=== PATIENT | female | born 1990 | race Caucasian/White ===

== ENCOUNTER 2018-01-12 22:15 | Inpatient (IN) | payer BC ==
[2018-01-12] MEDS ORDERED: Tdap Vaccine 0.5 ml Vial (10-64 yrs) IM ONE ×2 (22:46→23:07)
[2018-01-12] MEDS ORDERED: ceFAZolin 2 GM in Sodium Chloride 0.9% 100 ML IVPB STA (22:47)
[2018-01-12] MEDS ORDERED: ceFAZolin IV 2 gm in Dextrose 2 GM/50 ML BAG IVPB STA (22:56)
[2018-01-12] MEDS ORDERED: Sodium Chloride 0.9% 1,000 ML IV STA (22:59)
[2018-01-12] MEDS: Lactated Ringer's 1,000 ML IV SCH (23:00)
[2018-01-12 23:17] LABS: BASO # 0.1 K/uL (0.0-0.2); BASO % 0.4 % (0.0-2.0); EOS # 0.1 K/uL (0.0-0.7); EOS % 0.4 % (0.0-4.0); HEMOGLOBIN 9.9 g/dL (12.0-16.0); LYMPH # 4.8 K/uL (1.0-4.3); LYMPH % 23.1 % (20.0-40.0); MEAN CORPUSCULAR HEMOGLOBIN 26.4 pg (27.0-31.0); MEAN CORPUSCULAR HGB CONC 32.5 g/dL (33.0-37.0); MEAN PLATELET VOLUME 8.6 fl (7.2-11.7); MONO # 1.1 K/uL (0.0-0.8); MONO % 5.1 % (0.0-10.0); NEUT # 14.6 K/uL (1.8-7.0); NRBC % 0.1 % (0.0-0.0); RBC 3.75 Mil/uL (3.80-5.20); RED CELL DISTRIBUTION WIDTH 14.2 % (11.5-14.5); WHITE BLOOD COUNT 20.6 K/uL (4.8-10.8)
[2018-01-12] MEDS ORDERED: Morphine 4 MG/ML VIAL ONE (23:21)
--- NOTE | 2018-01-12 23:24 | ED PDOC ---
HPI: Female Pain Time Seen by Provider: 01/12/18 22:32 Chief Complaint (Nursing): Female Genitourinary Chief Complaint (Provider): Female Genitourinary History Per: Patient History/Exam Limitations: no limitations Onset/Duration Of Symptoms: Mins ([employer]MENT CHAIR) Current Symptoms Are (Timing): Still Present Quality Of Discomfort: "Pain" Additional Complaint(s): 27 year old female brought in by EMS presents to ED with complaints of vaginal bleeding [employer] DE[employer]MENT CHAIR and has no past medical history. Patient states she was on the [facility] walkway, was locked out, and attempted to climb over the iron gate. Patient reports she subsequently suffered a penetrative injury to the vaginal area through the pants due to the iron spikes present on the gate. ( +) severe pain and bleeding from the vaginal area. On arrival to ED patient notes pain is worse on the left side. Reports she is sexually active but has never been . States she is currently on antibiotics for UTI diagnosed 2 days ago. PCP: None Abnormal Vaginal Bleeding: Yes Past Medical History Reviewed: Historical Data, Nursing Documentation, Vital Signs Vital Signs: Last Vital Signs Temp 97.5 F L 01/12/18 22:22 Pulse 89 01/12/18 22:22 Resp 18 01/12/18 22:22 BP 108/68 01/12/18 22:22 Pulse Ox 99 01/12/18 22:22 - Medical History PMH: No Chronic Diseases - Surgical History Surgical History: No Surg Hx - Family History Family History: States: Unknown Family Hx - Allergies Allergies/Adverse Reactions: Allergies Allergy/AdvReac Type Severity Reaction Status Date / Time No Known Allergies Allergy Verified 01/12/18 22:22 Review of Systems ROS Statement: Except As Marked, All Systems Reviewed And Found Negative Genitourinary Female: Positive for: Vaginal Bleeding, Pelvic Pain Physical Exam - Reviewed Nursing Documentation Reviewed: Yes Vital Signs Reviewed: Yes - Physical Exam Appears: Positive for: Non-toxic, Uncomfortable Skin: Positive for: Normal Color, Warm, Dry Cardiovascular/Chest: Positive for: Regular Rate, Rhythm. Negative for: Murmur Respiratory: Positive for: Normal Breath Sounds. Negative for: Respiratory Distress Gastrointestinal/Abdominal: Positive for: Soft. Negative for: Tenderness Pelvic Exam: Positive for: Active Bleeding (Oozing of blood from innter aspeect of vulva, left-sided. 2cm clot present), Blood (Large labial hematoma [id number]) Extremity: Positive for: Normal ROM. Negative for: Deformity Neurologic/Psych: Positive for: Alert, Oriented. Negative for: Motor/Sensory Deficits - Laboratory Results Result Diagrams: 01/13/18 05:00 01/12/18 23:14 - ECG O2 Sat by Pulse Oximetry: 99 (RA) Pulse Ox Interpretation: Normal - Critical Care Total Time (In Min): 30 Medical Decision Making Medical Decision Makin Initial impression: acute straddle injury, possible laceration, labial hematoma Initial plan: * T&S * EKG * EtOH serum * Labs * BURRITO MAKER consult * UPreg * UDip * PTT/PT * Adacel 0.5mL IM * Lactated Ringers IV * Morphine 4mg IVP * UA * Re-eval 2239 Dr. Fontenot evaluated patient, who has determined treatment will be conservative : local ice packs 2255 * Ancef IV 2gm in 50mL IVPB * NS IV * Zofran Inj 4mg IV * INPATIENT TELE ORDER - NAN Patient had hypotensive episode. Treatment given and blood pressure improved. Patient will be admitted under Dr. Fontenot in INPATIENT TELE. Scribe Attestation: Documented by Elisha Dempsey acting as a scribe for Jan Barrett MD. DO Scribe Attestation: All medical record entries made by the Scribe were at my direction and personally dictated by me. I have reviewed the chart and agree that the record accurately reflects my personal performance of the history, physical exam, medical decision making, and the department course for this patient. I have also personally directed, reviewed, and agree with the discharge instructions and disposition. Disposition - Clinical Impression Clinical Impression: Hematoma of labia majora, Laceration of labia majora - Patient ED Disposition Is Patient to be Admitted: Yes - Disposition Disposition: Routine/Home Disposition Time: 22:56 Condition: FAIR - Pt Status Changed To: Hospital Disposition Of: Inpatient (INPATIENT TELE) - Admit Certification Admit to Inpatient:: After my assessment, the patient will require hospitalization for at least two midnights. This is because of the severity of symptoms shown, intensity of services needed, and/or the medical risk in this patient being treated as an outpatient.
[2018-01-12 23:27] LABS: ALB/GLOB RATIO 1.2 (1.0-2.1); ALBUMIN 3.7 g/dL (3.5-5.0); ALT/SGPT 25 U/L (9-52); AST/SGOT 18 U/L (14-36); BLOOD UREA NITROGEN 8 mg/dl (7-17); CALCIUM 8.4 mg/dL (8.4-10.2)
[2018-01-12 23:28] LABS: INR 1.2 (0.9-1.2); PARTIAL THROMBOPLASTIN TIME 19.9 Seconds (25.6-37.1); PROTHROMBIN TIME 13.2 Seconds (9.8-13.1)
[2018-01-12 23:45] LABS: GFR AFRICAN-AMERICAN > 60; GFR NON-AFRICAN AMERICAN > 60
[2018-01-13 00:07] LABS: SQUAMOUS EPITHIAL 1 /hpf (0-5); URINE BILIRUBIN NEGATIVE (NEGATIVE); URINE BLOOD MODERATE (NEGATIVE); URINE CLARITY SLIGHTY-CLOUDY (Clear); URINE COLOR YELLOW (YELLOW); URINE GLUCOSE (UA) NEG (Normal); URINE LEUKOCYTE ESTERASE NEG Leu/uL (Negative); URINE NITRATE NEGATIVE (NEGATIVE); URINE PROTEIN NEGATIVE (NEGATIVE); URINE UROBILINOGEN 0.2-1.0 mg/dL (0.2-1.0)
[2018-01-13] MEDS: Lactated Ringer's 1,000 ML IV SCH ×4 (00:20→04:17)
--- NOTE | 2018-01-13 07:11 | CON ---
DATE: 01/12/2018 GYNECOLOGIC CONSULTATION IN THE EMERGENCY DEPARTMENT The patient was seen for this consult on 01/12/2018. HISTORY OF PRESENT ILLNESS: This is a 27-year-old, G0, LMP of 12/27/2017 who reports that she was climbing a fence with spikes and landed on one of the spikes and now has a straddle injury. The patient went home after the accident and realized that her vulva was badly injured and decided to come to the Emergency Department. The patient reports that she is getting in a month and does plan to conceive soon. PAST MEDICAL HISTORY: She is healthy. PAST SURGICAL HISTORY: None. MEDICATIONS: Antibiotics for UTI. She cannot remember the name of the antibiotics. ALLERGIES: NO KNOWN DRUG ALLERGIES. FAMILY HISTORY: Noncontributory. SOCIAL HISTORY: She drinks about 1 to 2 drinks about once a week or less than once a week. She denies tobacco and illicit drug use. GYNECOLOGIC HISTORY: Menarche at 13. She has history of regular periods. She denies any history of any STD's and the patient reports that she has never had pap smear. The patient does not have an EDITORIAL SPECIALIST. PHYSICAL EXAMINATION: VITAL SIGNS: Afebrile. Her pulse is in the 80s, blood pressure is 108/68, respiratory rate is 18, and oxygen saturation is 99%. At one point, her pulse was low in the 40s which may have been due to vasovagal event due to the pain. GENERAL: The patient is lying on the stretcher w/a large ice pack between her legs, under the sheet. PELVIC: On exam, her right labium majus appears normal. Left labium appears to be swollen and is consistent with the vulvar hematoma and it measures about 9 cm x 4 cm in its largest diameters. There is also blood on the towel on which she is sitting and the nurse reports that she was oozing, but when she put the ice pack on it, the oozing stop. There does appear to be like a small about 1 cm small incision in the hematoma that does not appear to be actively draining. EXTREMITIES: Nontender and non-swollen. LABORATORY DATA: Her white blood cell count is elevated at 20.6, her hemoglobin is 9.9, and her platelets are 277. Her PT is elevated just mildly at 13.2 and her PTT is low at 19.9. Her comprehensive metabolic panel is normal except her carbon-dioxide is low at 21. Alcohol quantitative is actually elevated at 65. Her urine analysis appears to have a high 46 rbc's only 1 squamous epithelium and moderate blood. ASSESSMENT AND PLAN: This is a 27-year-old who has a straddle injury from falling on the spike climbing a fence, who has a large vulvar hematoma on the left side. The vulvar hematoma appears stable, does not appear to be expanding. The patient's vital signs are stable. The patient was started on Ancef 2 g q. 6 hours. The plan is that she is to receive a tetanus shot. The patient received 4 mg of IV morphine which helped to control her pain and she also has ice pack on her vulva and a Montejo was placed to drain her bladder. The patient will be admitted to the Gynecologic Service. We will follow serial hematocrit and follow the patient clinically to see if taking her to the surgery to evacuate the clot as indicated. Cary Fontenot MD MTDD
[2018-01-13 07:34] LABS: BASO % 0.1 % (0.0-2.0); HEMOGLOBIN 9.2 g/dL (12.0-16.0); LYMPH # 3.3 K/uL (1.0-4.3); LYMPH % 14.9 % (20.0-40.0); MEAN CELL VOLUME 81.4 fl (81.0-99.0); MEAN CORPUSCULAR HEMOGLOBIN 25.8 pg (27.0-31.0); MEAN CORPUSCULAR HGB CONC 31.7 g/dL (33.0-37.0); MEAN PLATELET VOLUME 9.7 fl (7.2-11.7); MONO % 4.4 % (0.0-10.0); NEUT # 17.8 K/uL (1.8-7.0); NEUT % 80.6 % (50.0-75.0); NRBC % 0.1 % (0.0-0.0); RBC 3.57 Mil/uL (3.80-5.20); RED CELL DISTRIBUTION WIDTH 14.4 % (11.5-14.5); WHITE BLOOD COUNT 22.1 K/uL (4.8-10.8)
[2018-01-13 11:21] VITALS: BP 115/59; PULSE 90; RESP 16; TEMP 98.8
--- NOTE | 2018-01-13 21:46 | CARD ---
APPROVED REPORT EKG Measurement Heart [id number] <Conclusion> Normal sinus rhythm Normal ECG
[2018-01-15 23:56] VITALS: O2SAT 99
== END 2018-01-13 12:05 | disposition home or self-care (01) | DRG 760 ==
LOC: H.ER 22:15 → H.ERHOLD 22:59
PROVIDERS: ADMIT Obstetrics & Gynecology; ATTEND Obstetrics & Gynecology
PROC: 3E0234Z Introduction of Serum, Toxoid and Vaccine into Muscle, Percutaneous Approach (ICD-10-PCS; principal; 2018-01-12)
DX: S30.23XA Contusion of vagina and vulva, initial encounter (principal); N39.0 Urinary tract infection, site not specified; W19.XXXA Unspecified fall, initial encounter; Y93.39 Activity, other involving climbing, rappelling and jumping off; Y92.89 Other specified places as the place of occurrence of the external cause; Z23 Encounter for immunization